=== PATIENT | female | born 1995 | race Asian ===

== ENCOUNTER 2018-08-07 17:40 | Emergency (ER) | payer SELFPAY ==
[~2018-08-07] VITALS: Ht 152.4 cm; Wt 59.0 kg
[2018-08-07 21:40] VITALS: BP 124/76
== END 2018-08-07 21:44 | disposition home or self-care (01) ==
LOC: ER 17:40
DX: J32.9 Chronic sinusitis, unspecified (principal); Z87.01 Personal history of pneumonia (recurrent)
CPT/HCPCS: 99283